=== PATIENT | male | born 1970 | race Caucasian/White ===

== ENCOUNTER → 2017-06-27 | Outpatient (CLI) | payer BC ==
--- NOTE | 2017-06-27 19:54 | US ---
EXAMINATION TYPE: US abdomen complete DATE OF EXAM: 06/27/2017 COMPARISON: NONE CLINICAL HISTORY: R10.11 Right upper quadrant pain. EXAM MEASUREMENTS: Liver Length: 19.7 cm Gallbladder Wall: 0.3 cm CBD: 0.4 cm Spleen: 11.5 cm Right Kidney: 13.3 x 6.2 x 5.2 cm Left Kidney: 13.4 x 6.2 x 4.5 cm Exam limitations due to body habitus Pancreas: Tail obscured by overlying bowel gas Liver: Increased attenuation Gallbladder: gallstone visualized Evidence for sonographic Rojas's sign: No CBD: wnl Spleen: wnl Right Kidney: No hydronephrosis or masses seen Left Kidney: No hydronephrosis or masses seen Upper IVC: wnl Abd Aorta: wnl Gallstone visualized non mobile IMPRESSION: Gallstones. No dilated ducts. No focal liver defect.
== END | disposition home or self-care (01) ==
LOC: RADUSMAIN 17:49
PROVIDERS: ATTEND Internal Medicine
DX: K80.80 Other cholelithiasis without obstruction (principal)
CPT/HCPCS: 76700

== ENCOUNTER 2020-05-04 04:24 | Inpatient (IN) | payer BC, OTHER ==
[2020-05-04] MEDS ORDERED: NITROGLYCERIN SL TABS 0.4 MG TAB SUBLINGUAL PRN (04:36)
[2020-05-04] MEDS ORDERED: MORPHINE SULFATE 4 MG/ML SYRINGE IVP STA (04:39)
[2020-05-04] MEDS ORDERED: MAG HYDROX/AL HYDROX/SIMETH 30 ML, HYOSCYAMINE ELIXIR 10 ML, LIDOCAINE VISCOUS 2% 10 ML PO STA ×3 (04:39)
--- NOTE | 2020-05-04 04:40 | ED ---
Chest Pain HPI - General Chief Complaint: Chest Pain Stated Complaint: CHEST PAINS Time Seen by Provider: 05/04/20 04:36 Source: patient Mode of arrival: ambulatory Limitations: no limitations - History of Present Illness Initial Comments: Laureano is a morbidly obese 49-year-old male who presents to the ER today as a transfer from [facility] for further evaluation by cardiology. Patient presents to the hospital with a complaint of sharp stabbing retrosternal pain radiating to his back. Patient was noted be hypertensive on arrival there. EKG was nonischemic. He was treated with morphine aspirin nitro, he received a full cardiac workup including a CTA of the chest with no acute findings however given the patient's age and risk factors and description of his pain and he felt he warranted admission to the hospital for further evaluation by cardiology. Patient has no established care with [employer] but his follows with the cardiology group at this hospital and therefore they requested transfer. Despite receiving 3 doses of narcotics patient reports persistent pain upon arrival. No nausea or vomiting. Pain not relieved by nitro previously. Hypertension has improved. Denies palpitations, lightheadedness or shortness of breath. - Related Data Home Medications Medication Instructions Recorded Confirmed No Known Home Medications 07/12/17 07/12/17 Allergies Allergy/AdvReac Type Severity Reaction Status Date / Time bee pollen Allergy Anaphylaxis Verified 05/04/20 04:37 Review of Systems ROS Statement: Those systems with pertinent positive or pertinent negative responses have been documented in the HPI. ROS Other: All systems not noted in ROS Statement are negative. EKG Findings - EKG Comments: EKG Findings:: EKG was obtained due to complaint of persistent chest pain, EKG was obtained at 4:30 AM, rate is 69, rhythm is sinus there is a normal axis, there are normal intervals, RI 158, QRS 100, QTC [address] elevations or depressions no evidence of acute ischemia or infarction or arrhythmia. Past Medical History Past Medical History: Hypertension Additional Past Medical History / Comment(s): back pain History of Any Multi-Drug Resistant Organisms: None Reported Past Surgical History: Cholecystectomy, Tonsillectomy Past Psychological History: No Psychological Hx Reported Smoking Status: Current every day smoker Past Alcohol Use History: Occasional Past Drug Use History: None Reported - Past Family History Mother Additional Family Medical History / Comment(s): pt. states his mother had heart issues, although he cannot remember which conditions General Exam - General Exam Comments Initial Comments: Physical Exam GENERAL: Patient is well-developed and well-nourished. Patient is nontoxic and well-hydrated Appears uncomfortable HENT: Normocephalic, Atraumatic. EYES: PERRL, EOMI PULMONARY: Unlabored respirations. No audible rales rhonchi or wheezing was noted. CARDIOVASCULAR: There is a regular rate and rhythm without any murmurs gallops or rubs. Mild bilateral lower extremity edema and chronic skin changes consistent with vascular insufficiency ABDOMEN: Obese Soft and nontender with normal bowel sounds. SKIN: Skin is clear with no lesions or rashes and otherwise unremarkable. : Deferred NEUROLOGIC: Patient is alert and oriented x3. Moving all extremities spontaneously MUSCULOSKELETAL: Normal extremities with adequate strength and full range of motion. No lower extremity swelling or edema. No calf tenderness. PSYCHIATRIC: Normal psychiatric evaluation. Limitations: no limitations Course Vital Signs 05/04/20 05/04/20 05/04/20 04:33 05:08 05:52 Temperature 97.9 F 97.8 F Pulse Rate 80 74 Pulse Rate [ 64 Pulse Oximetery ] Respiratory 20 19 16 Rate Blood Pressure 132/87 132/81 Blood Pressure 128/75 [Left Arm Sitting] O2 Sat by Pulse 96 96 94 L Oximetry Chest Pain MDM - MDM Patient care was discussed with the transferring physician prior to transfer Patient being transferred for further evaluation of possible ACS She was seen and evaluated upon arrival the emergency department, outpatient labs and imaging were reviewed Repeat troponin and coags were obtained Patient was treated with morphine as well as a GI cocktail for discomfort Patient will be admitted for further evaluation of retrosternal chest pain Disposition Clinical Impression: Chest pain, Morbid obesity with BMI of 50.0-59.9, adult, HTN (hypertension), Cigarette smoker Disposition: ADMITTED IP TO THIS HOSP Condition: Stable Referrals: Fozia Baires MD [Primary Care Provider] - 1-2 days
[2020-05-04 05:31] LABS: INR 0.9 (<1.2); Prothrombin Time 9.6 sec (9.0-12.0)
[2020-05-04] MEDS ORDERED: DOBUTamine DRIP for NUC MED 500 MG in DEXTROSE/WATER 1 250ML.BAG IV ONE (08:32)
--- NOTE | 2020-05-04 09:39 | P.CRDCN ---
History of Present Illness Consult date: 05/04/20 Consult reason: chest pain Chief complaint: chest pain History of present illness: this is a 49-year-old gentleman with no prior documented history of hypertension, no diabetes, no hyperlipidemia although he does not follow regularly with her primary care physician, he does smoke one pack of cigarettes per day, he does not drink alcohol, he is morbidly obese, history of sleep apnea. Patient presented to [facility] with symptoms of midsternal chest pain which the patient described as a sharp stabbing pain, mild associated shortness of breath, no nausea no diaphoresis. Started approximately 8 AM yes terday morning and has been off and on, but mostly constant since then. His EKG on presentation showed normal sinus rhythm with no acute changes. Blood pressure 128/70 with a heart rate in the 60s, respirations 1694% on room air. White blood cell count 12.2, hemoglobin 17.1, platelet count 240. Sodium 139, potassium 4.2, BUN 27, creatinine 0.7. Troponin less than 0.05 at [place], and troponins here have been negative 2. He did have a CTA of the chest performed at [facility] which was negative for pulmonary embolism, CT of the abdomen and pelvis was normal. Chest x-ray was also performed at [facility] which did not reveal any significant change. At the time of my examination this morning, patient continues to have a sharp stabbing midsternal chest discomfort. We will request an echocardiogram with Doppler study be performed, obtain a lipid profile, and recommended that the patient undergo a dobutamine echocardiographic study with Definity if needed. Past Medical History Past Medical History: Hypertension Additional Past Medical History / Comment(s): back pain History of Any Multi-Drug Resistant Organisms: None Reported Past Surgical History: Cholecystectomy, Tonsillectomy Past Anesthesia/Blood Transfusion Reactions: No Reported Reaction Past Psychological History: No Psychological Hx Reported Smoking Status: Current every day smoker Past Alcohol Use History: Occasional Past Drug Use History: None Reported - Past Family History Mother Additional Family Medical History / Comment(s): pt. states his mother had heart issues, although he cannot remember which conditions Medications and Allergies Home Medications Medication Instructions Recorded Confirmed Type No Known Home Medications 07/12/17 05/04/20 History Allergies Allergy/AdvReac Type Severity Reaction Status Date / Time bee pollen Allergy Anaphylaxis Verified 05/04/20 07:49 Physical Exam Vitals: Vital Signs Temp Pulse Pulse Resp BP BP Pulse Ox 05/04/20 07:54 98.1 F 73 124/83 95 05/04/20 05:52 97.8 F 64 16 128/75 94 L 05/04/20 05:08 74 19 132/81 96 05/04/20 04:33 97.9 F 80 20 132/87 96 Intake and Output 05/03/20 05/04/20 05/04/20 22:59 06:59 14:59 Other: Voiding Method Toilet # Voids 1 Weight 167.829 kg PHYSICAL EXAMINATION: GENERAL:49-year-old gentleman in no acute distress at the time of my examination HEENT: Head is atraumatic, normocephalic. Pupils equal, round. Sclera anicteric. Conjunctiva are clear. Mucous membranes of the mouth are moist. Neck is supple. There is no elevated jugular venous pressure.no carotid bruit is heard. HEART EXAMINATION: [Heart S1, S2 normal. No murmur or gallop heard.] CHEST EXAMINATION:[ Lungs are clear to auscultation and precussion. Chest wall tenderness is noted on palpation, not with deep breathing.] ABDOMEN: [ Soft,obese, nontender. Bowel sounds are heard. No organomegaly noted]. EXTREMITIES:[ 2+ peripheral pulses with no evidence of peripheral edema and no calf tenderness noted]. NEUROLOGIC [patient is awake, alert and oriented X3.] . Results Cardiac Enzymes 05/04/20 05/04/20 05/04/20 Range/Units 04:54 05:15 07:05 Troponin I <0.012 <0.012 <0.012 (0.000-0.034) ng/mL Coagulation 05/04/20 Range/Units 04:54 PT 9.6 (9.0-12.0) sec APTT 25.0 (22.0-30.0) sec Current Medications Generic Name Dose Route Start Last Admin Trade Name Freq PRN Reason Stop Dose Admin Aspirin 81 mg 05/05/20 09:00 Aspirin 81 Mg PO DAILY QI Dobutamine HCl/Dextrose 500 mg 250 mls @ 50.349 mls/hr 05/04/20 08:32 / IV Solution IV 05/04/20 13:29 .Q4H58M ONE Protocol 10 MCG/KG/MIN Nitroglycerin 0.4 mg 05/04/20 04:36 Nitroglycerin Sl Tabs 0.4 Mg Tab SUBLINGUAL Q5M PRN Chest Pain Intake and Output 05/03/20 05/04/20 05/04/20 22:59 06:59 14:59 Other: Voiding Method Toilet # Voids 1 Weight 167.829 kg EKG Interpretations (text) EKG shows a normal sinus rhythm with no acute changes. Assessment and Plan Plan: assessment and plan #1 atypical chest pain, troponins negative 3, EKG shows normal sinus rhythm with no acute changes. #2nicotine dependence, patient's smokes one pack of cigarettes per day #3 morbid obesity #4 sleep apnea #5 no prior documented history of hypertension, no diabetes, no hyperlipidemia, patient does not follow regularly with the primary care doctor Plan We will obtain an echocardiogram with Doppler study, obtain lipid profile, patient will undergo dobutamine echocardiographic study with Definity as needed, today. Further recommendations will be based on those findings and the patient's overall clinical course. DNP note has been reviewed, I agree with a documented findings and plan of care. Patient was seen and examined.
--- NOTE | 2020-05-04 10:10 | ECHOF ---
Referral Reason:chest pain MEASUREMENTS -------- HEIGHT: 180.3 cm WEIGHT: 167.8 kg BP: IVSd: 1.4 cm (0.6 - 1.1) LVIDd: 3.5 cm (3.9 - 5.3) LVPWd: 1.5 cm (0.6 - 1.1) IVSs: 2.1 cm LVIDs: 2.0 cm LVPWs: 1.8 cm Ao Diam: 3.5 cm (2.0 - 3.7) LA Diam: 2.7 cm (2.7 - 3.8) MV EXCURSION: 16.074 mm (> 18.000) MV EF SLOPE: 72 mm/s (70 - 150) EPSS: 0.3 cm MV E Julio: 0.48 m/s MV DecT: 293 ms MV A Julio: 0.46 m/s MV E/A Ratio: 1.06 RAP: 5.00 mmHg RVSP: 9.64 mmHg FINDINGS -------- This was a technically difficult study with suboptimal views. The left ventricular size is normal. There is moderate concentric left ventricular hypertrophy. O verall left ventricular systolic function is normal with, an EF between 55 - 60 %. The RV was not well visualized. The left atrium was not well visualized. The right atrium was not well visualized. Lumason used The aortic valve was not well visualized. The mitral valve was not well visualized. The tricuspid valve was not well visualized. The pulmonic valve was not well visualized. The aortic root size is normal. IVC Not well visulized. There is no pericardial effusion. CONCLUSIONS -------- 1. There is moderate concentric left ventricular hypertrophy. 2. Overall left ventricular systolic function is normal with, an EF between 55 - 60 %. 3. There is no pericardial effusion. [employer]: Bindu Agarwal RDCS
--- NOTE | 2020-05-04 10:16 | P.EN ---
I came to see the patient and he was at stress test. We will follow up
--- NOTE | 2020-05-04 12:22 | ECHOS ---
STRESS ECHOCARDIOGRAM INDICATIONS: Chest pain. MEDICATIONS: None BASELINE HEART RATE: 69 BASELINE BLOOD PRESSURE: 135/72 MAXIMUM HEART RATE: 113 MAXIMUM BLOOD PRESSURE: 174/68 85% MPHR: 146 100% MPHR: 172 MAXIMUM STAGE REACHED: 3 TOTAL EXERCISE TIME: 8:15 CLINICAL INFORMATION: STRESS DATA: Heart rate 69, pressure is 135/72 mmHg. Baseline EKG showed sinus mechanism. Dobutamine infusion at a dose of 10 mcg/kg per minute was initiated and increased to 30 mcg/kg per minute per protocol. Max heart rate was 113, which is only about 65% of maximum predicted heart rate. Maximum blood pressure was 174/68 mmHg. Clinically, the patient did not have any symptoms of chest pain or chest discomfort. The EKG did not show any significant changes, but the patient developed wide-complex rhythm in response to dobutamine, seems to be consistent with left bundle branch morphology. ECHOCARDIOGRAM IMAGES: On echocardiogram images from parasternal long axis view, parasternal short axis view, apical 4 chamber and apical 2 chambers were obtained as the baseline images, at the low dose dobutamine infusion, at the peak of the heart rate as well as on recovery. The echocardiogram images did not show any significant wall motion abnormalities concerning for ischemia. CONCLUSION: 1. This is a nondiagnostic dobutamine stress echocardiogram due to the patient not achieving 85% and only achieving 65% of maximum predicted heart rate. 2. Left bundle branch block in response to dobutamine. 3. Normal echocardiogram in response to dobutamine to the level of heart rate was achieved. MMODL / IJN: [id number] /
--- NOTE | 2020-05-04 13:21 | P.HPIM ---
History of Present Illness This is a pleasant 49 years old male with past medical history of hypertension, chronic back pain. Patient does not follow with PCP. He smokes about 1 pack per day. patient was transferred from [facility]. He presents because of chest pain He did have a CTA of the chest performed at [facility] which was negative for pulmonary embolism as per transfer report, CT of the abdomen and pelvis was normal. Chest x-ray was also performed at [facility] which did not reveal any significant change. CT angiography of the abdomen and pelvis done at [facility]: No aortic dissection or aneurysm, no other vascular abnormality per report of radiologist Vitals are stable. Labs include been INR 0.9, severe troponin less than 0.012. WBC was slightly elevated 12.2 K, hemoglobin 17.1, platelets 240 daily. INR 1.0. Sodium 139, potassium 4.2, creatinine 0.7. Liver enzymes not elevated, troponin is negative at less than 0.05. Past Medical History Past Medical History: Hypertension Additional Past Medical History / Comment(s): back pain History of Any Multi-Drug Resistant Organisms: None Reported Past Surgical History: Cholecystectomy, Tonsillectomy Past Anesthesia/Blood Transfusion Reactions: No Reported Reaction Past Psychological History: No Psychological Hx Reported Smoking Status: Current every day smoker Past Alcohol Use History: Occasional Past Drug Use History: None Reported - Past Family History Mother Additional Family Medical History / Comment(s): pt. states his mother had heart issues, although he cannot remember which conditions Medications and Allergies Home Medications Medication Instructions Recorded Confirmed Type No Known Home Medications 07/12/17 05/04/20 History Allergies Allergy/AdvReac Type Severity Reaction Status Date / Time bee pollen Allergy Anaphylaxis Verified 05/04/20 07:49 Physical Exam Vitals: Vital Signs Temp Pulse Pulse Resp BP BP BP 05/04/20 12:52 117/66 05/04/20 09:00 73 16 05/04/20 07:54 98.1 F 73 124/83 05/04/20 05:52 97.8 F 64 16 128/75 05/04/20 05:08 74 19 132/81 05/04/20 04:33 97.9 F 80 20 132/87 Pulse Ox 05/04/20 12:52 05/04/20 09:00 05/04/20 07:54 95 10/06/20 05:52 94 L 05/04/20 05:08 96 05/04/20 04:33 96 Intake and Output 05/03/20 05/04/20 05/04/20 22:59 06:59 14:59 Other: Voiding Method Toilet Toilet # Voids 1 Weight 167.829 kg 167.83 kg Thrombosis Risk Factor Assmnt - Choose All That Apply Each Factor Represents 1 point: Age 41-60 years, Obesity (BMI >25) Thrombosis Risk Factor Assessment Total Risk Factor Score: 2 Thrombosis Risk Factor Assessment Level: Low Risk Assessment and Plan Assessment: -Chest pain, rule out cardiac reasons. Patient is planned to go for cardiac cath tomorrow. Cartilage team on the case. Continue with aspirin -Nicotine dependence: Patient is counseled. Continue with nicotine patch as patient agrees to quit -Hypertension -Chronic back pain -DVT prophylaxis: Subcutaneous heparin -GI Prophylaxis: Pepcid Prognosis is guarded
[2020-05-04] MEDS: NICOTINE 14MG/24HR PATCH TRANSDERM SCH (13:37)
[2020-05-04] MEDS: ACETAMINOPHEN TAB 325 MG TAB PO PRN (13:37)
[2020-05-04] MEDS ORDERED: FAMOTIDINE 20 MG/2 ML VIAL IV ONE (14:00)
[2020-05-04] MEDS: FAMOTIDINE 20 MG/2 ML VIAL IV SCH (20:21)
[2020-05-04] MEDS: HEPARIN SODIUM,PORCINE 5,000 UNIT/ML 1 ML VIAL SQ SCH (20:22)
[2020-05-05 01:41] LABS: Cholesterol 183 mg/dL (<200); HDL Cholesterol 39 mg/dL (40-60); LDL Cholesterol,Calculated 108 mg/dL (0-99); Triglycerides 181 mg/dL (<150)
[2020-05-05] MEDS ORDERED: NITROGLYCERIN SL TABS 0.4 MG TAB SUBLINGUAL PRN (07:03)
[2020-05-05] MEDS ORDERED: ATORVASTATIN 80 MG TAB PO STA (07:03)
[2020-05-05] MEDS ORDERED: SODIUM CHLORIDE 0.9% 1,000 ML in EMPTY BAG 1 BAG IV ONE (07:03)
[2020-05-05] MEDS ORDERED: ASPIRIN 325 MG TAB PO STA (07:03)
[2020-05-05] MEDS ORDERED: ALPRAZolam 0.25 MG TAB PO PRN (07:03)
[2020-05-05 07:43] LABS: Glucose,Whole Blood 103 mg/dL (75-99)
[2020-05-05] MEDS: HEPARIN SODIUM,PORCINE 5,000 UNIT/ML 1 ML VIAL SQ SCH ×2 (08:08→20:03)
[2020-05-05] MEDS: NICOTINE 14MG/24HR PATCH TRANSDERM SCH (08:08)
[2020-05-05] MEDS: FAMOTIDINE 20 MG/2 ML VIAL IV SCH (08:08)
[2020-05-05] MEDS ORDERED: ASPIRIN 325 MG TAB PO SCH (09:00)
[2020-05-05] MEDS: ACETAMINOPHEN TAB 325 MG TAB PO PRN (13:58)
[2020-05-05] MEDS: ALPRAZolam 0.5 MG TAB PO PRN (13:59)
[2020-05-05] MEDS: ASPIRIN 81 MG PO SCH (14:01)
--- NOTE | 2020-05-05 17:02 | P.PN ---
Subjective patient given a chest pain, which appeared to be gases patient reflux disease patient is on Protonix patient also has positive stress test will undergo cardiac catheterization tomorrow. Constitutional: Denied any fatigue denied any fever. Cardio vascular: denied any chest pain, palpitations Gastrointestinal patient still has epigastric abdominal burning sensation. Pulmonary: Denied any shortness of breath cough Neurologic denied any new focal deficits All inpatient medications were reviewed and appropriate changes in these medications as dictated in the interval history and assessment and plan. Objective - Vital Signs Vital signs: Vital Signs Temp 97.7 F 05/05/20 15:00 Pulse 66 05/05/20 15:00 Resp 16 05/05/20 15:00 BP 110/71 05/05/20 15:00 Pulse Ox 95 05/05/20 15:00 Intake & Output 05/04/20 05/05/20 05/05/20 18:59 06:59 18:59 Intake Total 406 429 3626 Balance 366 397 2302 Weight 167.83 kg Intake: Intake, IV Titration 1002 Amount Sodium Chloride 0.9% 1, 1002 000 ml In Empty Bag 1 bag @ 1 ML/KG/HR 167.83 mls/ hr IV .Q5H58M ONE Rx#: [id number] Oral 640 240 480 Other: Voiding Method Toilet Toilet Toilet # Voids 2 2 - Exam PHYSICAL EXAMINATION: GENERAL: The patient is alert and oriented x3, not in any acute distress. obese HEENT: Pupils are round and equally reacting to light. EOMI. No scleral icterus. No conjunctival pallor. Normocephalic, atraumatic. No pharyngeal erythema. No thyromegaly. CARDIOVASCULAR: S1 and S2 present. No murmurs, rubs, or gallops. PULMONARY: Chest is clear to auscultation, no wheezing or crackles. ABDOMEN: Soft, nontender, nondistended, normoactive bowel sounds. No palpable organomegaly. MUSCULOSKELETAL: No joint swelling or deformity. EXTREMITIES: No cyanosis, clubbing, or pedal edema. NEUROLOGICAL: Gross neurological examination did not reveal any focal deficits. SKIN: No rashes. - Labs Labs: Abnormal Lab Results - Last 24 Hours (Table) 05/04/20 05/05/20 Range/Units 04:54 07:38 POC Glucose (mg/dL) 103 H (75-99) mg/dL Triglycerides 181 H (<150) mg/dL LDL Cholesterol, Calc 108 H (0-99) mg/dL HDL Cholesterol 39 L (40-60) mg/dL Assessment and Plan Plan: -Chest pain,with positive stress test will undergo cardiac ablation tomorrow patient did symptomatology is clinically consistent with gastroesophageal reflux disease because of which will continue with Protonix for now -Nicotine dependence: Patient is counseled. Continue with nicotine patch as patient agrees to quit -Hypertension -Chronic back pain -DVT prophylaxis: Subcutaneous heparin Prognosis is guarded
[2020-05-05] MEDS: PANTOPRAZOLE 40 MG/10 ML VIAL IVP SCH (20:02)
[2020-05-06] MEDS: ALPRAZolam 0.5 MG TAB PO PRN (00:29)
[2020-05-06] MEDS: ASPIRIN 81 MG PO SCH (06:35)
[2020-05-06 06:39] LABS: Glucose,Whole Blood 157 mg/dL (75-99)
[2020-05-06] MEDS ORDERED: fentaNYL (PF) 50 MCG/ML 2 ML AMP IV ONE (07:51)
[2020-05-06] MEDS ORDERED: MIDAZOLAM 2 MG/2 ML VIAL IV ONE ×2 (07:51→08:04)
[2020-05-06] MEDS ORDERED: IV FLUID CONTINUATION 800 ML IV ONE (07:51)
[2020-05-06] MEDS ORDERED: LIDOCAINE 1% INJ 10MG/ML (20 ML MDV) SQ ONE (07:54)
[2020-05-06] MEDS ORDERED: VERAPAMIL SYRINGE (5 MG/10 ML) INTRAARTER ONE (07:55)
[2020-05-06] MEDS ORDERED: IOPAMIDOL-370 125ML BTL INJ ONE (08:06)
[2020-05-06] MEDS ORDERED: RX INFO: IV CONTRAST WAS GIVEN 1 EACH MISC MISCELLANE PRN (08:12)
[2020-05-06] MEDS ORDERED: SODIUM CHLORIDE 0.9% 1,000 ML IV SCH (08:15)
[2020-05-06] MEDS: NICOTINE 14MG/24HR PATCH TRANSDERM SCH (09:35)
[2020-05-06] MEDS: HEPARIN SODIUM,PORCINE 5,000 UNIT/ML 1 ML VIAL SQ SCH (09:35)
[2020-05-06] MEDS: PANTOPRAZOLE 40 MG/10 ML VIAL IVP SCH (09:35)
--- NOTE | 2020-05-06 09:39 | CC ---
CARDIAC CATHETERIZATION REPORT DATE OF SERVICE: 05/06/2020 PERFORMING PHYSICIAN: John Melchor MD PROCEDURE PERFORMED: 1. Selective right and left coronary angiogram. 2. Left heart catheterization. INDICATION: This is a very pleasant 49-year-old gentleman with morbid obesity, who presented to the hospital with chest discomfort. Attempting doing stress test was seen an unsuccessful and because of that and because of the chest discomfort, a heart catheterization was advised. APPROACH: Right radial artery. COMPLICATION: None. LEVEL OF SEDATION: Moderate with sedation length of 15 minutes. PROCEDURE DESCRIPTION: After obtaining an informed consent, the patient was brought to the cardiac labor relations consultant. The right radial artery was cannulated using micropuncture technique, the micropuncture wire passed easily, then I placed a 6-Portuguese sheath 11 cm at the right radial artery. I did give the patient 2 mg of verapamil IA and 10,000 units of heparin IV. Selective right and left coronary angiogram performed with JR4 and JL3.5 catheters. Left heart catheterization was performed using 6-Portuguese pigtail catheter. The procedure was completed without any complication. SELECTIVE CORONARY ANGIOGRAM: 1. The right coronary artery is a large caliber vessel it is a dominant vessel. The RCA has mild disease only. Distally bifurcates into PDA and PLV branches and both appeared to be angiographically normal. 2. The left main is angiographically normal. It bifurcates into left circumflex and left anterior descending artery. 3. The left circumflex is a large caliber vessel, it is a nondominant vessel. The left circumflex system appeared to have mild disease only. It gives rise into the first obtuse marginal branch which is a medium caliber vessel, seems to be angiographically normal and second obtuse marginal branch which is a large caliber vessel and seems to be angiographically normal. The circumflex after that continues as a small caliber vessel in the AV groove. 4. The LAD: The proximal LAD appeared to be angiographically normal and gives rise into a large diagonal branch which seems to be normal. The mid LAD has eccentric lesion appeared to be in the range of 30% only and the LAD distally appeared to be normal. The LAD in the midportion gives rise into a second diagonal branch which seems to be angiographically normal. 5. HEMODYNAMICS: The LVEDP was 20 mmHg without significant gradient across aortic valve. CONCLUSION: 1. Mild nonobstructive disease involving the mid left anterior descending artery, appeared to be in the range of 30% only with an eccentric lesion. 2. Elevated LVEDP. POSTPROCEDURE MANAGEMENT: 1. Aspirin and high intensity statin. 2. Risk factor modifications. 3. Aggressive cholesterol control. 4. Weight loss. 5. Follow up with the patient. DON / MARLENI: [id number] /
--- NOTE | 2020-05-06 09:42 | LTR ---
DATE OF SERVICE: 05/06/2020 RE: Laureano Angel Dear Dr. Baires: Mr. Laureano Angel was admitted to [facility] with chest discomfort. He underwent a heart catheterization and that revealed mild nonobstructive coronary artery disease. I want to thank you for allowing me participate in his case and please do not hesitate to call if you have any question or concern. Sincerely, MD DON Branch / MARLENI: [id number] /
[2020-05-06 09:55] VITALS: TEMP 97.5
[2020-05-06 09:57] VITALS: RESP 18
[2020-05-06 13:07] VITALS: BP 129/78; PULSE 68
--- NOTE | 2020-05-06 15:17 | P.DS ---
Providers Date of admission: 05/06/20 08:18 Attending physician: Nhi Porter Consults: 05/04/20 04:36 Consult Physician Urgent Consulting Provider: [facility] Consult Reason/Comments: chest pain, HTN, HLD, obesity Do you want consulting provider notified?: Yes, Notify in am Primary care physician: Fozia Baires [facility] Course: patient given a chest pain, which appeared to be gases patient reflux disease patient is on Protonix patient also has positive stress test will undergo cardiac catheterization tomorrow. 05/06/2020 Patient had a cardiac catheterization which showed some it was cardiovascular disease but the not significant enough that he will need stenting. Patient does have mild hypercholesterolemia patient was discharged on aspirin statin. Patient still has some epigastric burning sensation patient may have peptic ulcer disease or gastritis patient will be given proton pump inhibitor for 14 days PHYSICAL EXAMINATION: GENERAL: The patient is alert and oriented x3, not in any acute distress. Obese HEENT: Pupils are round and equally reacting to light. EOMI. No scleral icterus. No conjunctival pallor. Normocephalic, atraumatic. No pharyngeal erythema. No thyromegaly. CARDIOVASCULAR: S1 and S2 present. No murmurs, rubs, or gallops. PULMONARY: Chest is clear to auscultation, no wheezing or crackles. ABDOMEN: Soft, nontender, nondistended, normoactive bowel sounds. No palpable organomegaly. MUSCULOSKELETAL: No joint swelling or deformity. EXTREMITIES: No cyanosis, clubbing, or pedal edema. NEUROLOGICAL: Gross neurological examination did not reveal any focal deficits. SKIN: No rashes. Assessment and Plan Plan: -Chest pain,with positive stress test patient underwent cardia catheterization and cardiac cath findings as mentioned above consistent with gastroesophageal reflux disease because of which will continue with Protonix for now -Nicotine dependence: Patient is counseled. Continue with nicotine patch as patient agrees to quit -Hypertension -Chronic back pain -DVT prophylaxis: Subcutaneous heparin Prognosis is guarded Patient Condition at Discharge: Stable Plan - Discharge Summary Discharge Rx Participant: No New Discharge Prescriptions: New Aspirin 81 mg PO DAILY #30 chew Pantoprazole [Protonix] 40 mg PO DAILY #14 tablet. Atorvastatin [Lipitor] 20 mg PO HS #30 tablet Discharge Medication List Aspirin 81 mg PO DAILY #30 chew 05/06/20 [Rx] Atorvastatin [Lipitor] 20 mg PO HS #30 tablet 05/06/20 [Rx] Pantoprazole [Protonix] 40 mg PO DAILY #14 tablet. 05/06/20 [Rx] Follow up Appointment(s)/Referral(s): John Melchor MD [STAFF PHYSICIAN] - 1 Week Fozia Baires MD [Primary Care Provider] - 3 Days Discharge Disposition: HOME SELF-CARE
[2020-05-06] MEDS ORDERED: PANTOPRAZOLE 40 MG TABLET PO SCH (17:30)
== END 2020-05-06 16:38 | disposition home or self-care (01) | DRG 392 ==
LOC: EC 04:24 → 3NCARDOBS 04:36 → OBSVTOIN 05-06 08:18
PROVIDERS: ADMIT Hospitalist; ATTEND Hospitalist
PROC: B2111ZZ Fluoroscopy of Multiple Coronary Arteries using Low Osmolar Contrast (ICD-10-PCS; 2020-05-06)
PROC: 4A023N7 Measurement of Cardiac Sampling and Pressure, Left Heart, Percutaneous Approach (ICD-10-PCS; principal; 2020-05-06 07:30)
DX: K21.9 Gastro-esophageal reflux disease without esophagitis (principal); Z68.43 Body mass index [BMI] 50.0-59.9, adult; E66.01 Morbid (severe) obesity due to excess calories; I25.10 Atherosclerotic heart disease of native coronary artery without angina pectoris; I10 Essential (primary) hypertension; G89.29 Other chronic pain; M54.9 Dorsalgia, unspecified; F17.210 Nicotine dependence, cigarettes, uncomplicated; G47.30 Sleep apnea, unspecified; K27.9 Peptic ulcer, site unspecified, unspecified as acute or chronic, without hemorrhage or perforation; K29.70 Gastritis, unspecified, without bleeding; E78.00 Pure hypercholesterolemia, unspecified; Z71.6 Tobacco abuse counseling; Z91.030 Bee allergy status; Z90.49 Acquired absence of other specified parts of digestive tract; Z98.890 Other specified postprocedural states; Z82.49 Family history of ischemic heart disease and other diseases of the circulatory system
CPT/HCPCS: 80061; 84484; 85379; 85610; 85730; 93005; 93306; 93351; 93458; 96374; 99285

== ENCOUNTER → 2023-05-05 | Outpatient (CLI) | payer OTHER ==
[2023-05-05 14:34] LABS: Basophils # (A) 0.07 X 10*3/uL (0.00-0.10); Eosinophils # (A) 0.26 X 10*3/uL (0.04-0.35); Eosinophils % (A) 3.7 %; HCT 52.1 % (39.6-50.0); HGB 17.5 d/dL (13.0-17.0); Lymphocytes % (A) 31.4 %; MCH 30.3 pg (27.0-32.0); MCHC 33.6 d/dL (32.0-37.0); MCV 90.3 FL (80.0-97.0); Mean Platelet Volume 9.1 FL (9.5-12.2); Monocytes # (A) 0.57 X 10*3/uL (0.20-1.00); Monocytes % (A) 8.1 %; NRBC Per 100 WBC 0 X 10*3/uL (0.00-0.01); Neutrophils # (A) 3.88 X 10*3/uL (1.80-7.70); Neutrophils % (A) 55.5 %; Platelet Count 190 X 10*3/uL (140-440); RBC 5.77 X 10*6/uL (4.40-5.60); RDW 12.5 % (11.5-14.5)
[2023-05-05 14:47] LABS: BUN/Creat Ratio 28.43 Ratio (12.00-20.00); Blood Urea Nitrogen 19.9 mg/dL (9.0-27.0); Calcium 8.9 mg/dL (8.7-10.3); Carbon Dioxide 23.8 mmol/L (21.6-31.8); Chloride 104 mmol/L (96-109); Glucose 130 mg/dL (70-110); Potassium 4.8 mmol/L (3.5-5.5); Sodium 138 mmol/L (135-145)
== END | disposition home or self-care (01) ==
LOC: LABPAT 09:32
PROVIDERS: ATTEND Urology
DX: Z30.02 Counseling and instruction in natural family planning to avoid pregnancy (principal)
CPT/HCPCS: 80048; 85025

== ENCOUNTER 2023-05-08 10:29 | Day surgery (SDC) | payer OTHER ==
--- NOTE | 2023-05-08 09:59 | P.HPIHPCON ---
History of Present Illness H&P Date: 05/08/23 Chief Complaint: family planning This is a 52-year-old male that was interested in proceeding with a Vasectomy. I was unable to palpate the bilateral vas secondary to patient's morbid obesity. Of note patient's BMI is 53. Vasectomy under sedation was discussed with him. Aware the risk which includes but not limited to bleeding, infection, injury to the testicle and chronic pain. Discussed also he will not get immediate results we'll have to have 2 negative samples prior to confirm sterility. Discussed also even if sterility is confirmed there is potential for . Consent for Procedure: I have explained the operation/procedure to the patient, including the risks, benefits, side effects, alternative therapies (including not receiving the proposed treatment or service), the likelihood of the patient achieving his/her goals, and potential recuperation problems for the procedure/sedation/analgesia, as well as any blood products, if indicated. I also explained to the patient the risks, benefits and side effects of the alternatives, as well as the risks related to not receiving the proposed procedure, care, treatment, or services. Past Medical History Past Medical History: Hyperlipidemia, Hypertension Additional Past Medical History / Comment(s): back pain History of Any Multi-Drug Resistant Organisms: None Reported Past Surgical History: Back Surgery, Cholecystectomy, Tonsillectomy Past Anesthesia/Blood Transfusion Reactions: No Reported Reaction Smoking Status: Current every day smoker - Past Family History Mother Additional Family Medical History / Comment(s): pt. states his mother had heart issues, although he cannot remember which conditions Medications and Allergies Home Medications Medication Instructions Recorded Confirmed Type Atorvastatin [Lipitor] 20 mg PO HS #30 tablet 05/06/20 05/02/23 Rx Allergies Allergy/AdvReac Type Severity Reaction Status Date / Time bee pollen Allergy Anaphylaxis Verified 05/02/23 09:35 Assessment and Plan Assessment: OR for bilateral vasectomy
[~2023-05-08 10:29] MED LIST: DEXAMETHASONE SOD PHOSPHATE 4 MG/ML 1 ML VIAL IV ONE; HYDROmorphone 0.5 MG/0.5 ML SYRINGE IVP PRN; LACTATED RINGERS 1,000 ML IV SCH; LIDOCAINE 1% (10MG/ML) FOR IV START INTRADERMA PRN; MIDAZOLAM 2 MG/2 ML VIAL IV PRN; ONDANSETRON 4 MG/2 ML VIAL IVP ONE; ceFAZolin 3 GM in SODIUM CHLORIDE 0.9% 100 ML IVPB PRN
[2023-05-08] MEDS ORDERED: SUCCINYLCHOLINE CHLORIDE 200 MG/10 ML VIAL IV ONE (13:17)
[2023-05-08] MEDS ORDERED: KETAMINE HCL IN 0.9 % NACL 50 MG/5 ML SYRINGE ONE (13:17)
[2023-05-08] MEDS ORDERED: fentaNYL (PF) 50 MCG/ML 2 ML AMP ONE ×2 (13:17→15:41)
[2023-05-08] MEDS ORDERED: DEXAMETHASONE SOD PHOSPHATE 10 MG/ML 1 ML VIAL ONE (13:17)
[2023-05-08] MEDS ORDERED: LIDOCAINE 1% INJ 10MG/ML (20 ML MDV) ONE (13:17)
[2023-05-08] MEDS ORDERED: PROPOFOL 10 MG/ML 20 ML VIAL IV ONE (13:17)
[2023-05-08] MEDS ORDERED: MIDAZOLAM 2 MG/2 ML VIAL ONE (13:17)
[2023-05-08] MEDS ORDERED: LIDOCAINE 2% INJ 20 MG/ML SQ ONE ×2 (13:34)
[2023-05-08] MEDS ORDERED: BACITRACIN ZINC 500 UNIT/GM OINT 28.4 GM TUBE TOPICAL ONE (13:34)
[2023-05-08] MEDS ORDERED: LACTATED RINGERS 1,000 ML IV ONE ×2 (14:47)
[2023-05-08 15:08] VITALS: TEMP 97.9
--- NOTE | 2023-05-08 15:08 | P.PN ---
Progress Note - Text Progress Note Date: 05/08/23 This 52 years old male who was scheduled to have bilateral vasectomy under monitored anesthesia care, he morbidly obese, after the case started under monitored anesthesia care during the procedure but patient was moving on the procedure table, and the surgeon requested to convert the case to her general anesthesia, and because of patient morbidly obese we've used to do general anesthesia under an endotracheal intubation, after preoxygenation with 100% oxygen, IV induction with propofol 300 mg and succinylcholine 140 mg, attempted to intubate using Glidscope, unable to visualize the vocal cords secondary to copious amount of soft tissue, we repositioned the patient, and attempted again to intubate using glidscope, x3 attempte, unable to visualize the vocal cord, and there was soft tissue edema in the oropharynx, we were able to mask ventilate the patient throughout the process of intubation, discussed with the surgeon the need to cancelle Case, patient noted to be scheduled in the future and we have to do fiberoptic intubation.
[2023-05-08] MEDS ORDERED: ACETAMINOPHEN TAB 500 MG TAB ONE (15:42)
[2023-05-08] MEDS ORDERED: fentaNYL (PF) 50 MCG/ML 2 ML AMP IVP ONE ×2 (15:50)
[2023-05-08] MEDS ORDERED: ACETAMINOPHEN TAB 500 MG TAB PO ONE ×2 (15:50)
[2023-05-08 15:58] VITALS: RESP 20
[2023-05-08 16:45] VITALS: BP 123/72; PULSE 70
--- NOTE | 2023-05-08 16:57 | P.OP ---
Date of Procedure: 05/08/23 Preoperative Diagnosis: Family planning Postoperative Diagnosis: Same Procedure(s) Performed: Attempted vasectomy Implants: None Anesthesia: MAC Surgeon: Ganga Rowley Estimated Blood Loss (ml): 10 Pathology: none sent Condition: stable Disposition: PACU Indications for Procedure: This is a 52-year-old male that was interested in proceeding with a Vasectomy. I was unable to palpate the bilateral vas secondary to patient's morbid obesity. Of note patient's BMI is 53. Vasectomy under sedation was discussed with him. Aware the risk which includes but not limited to bleeding, infection, injury to the testicle and chronic pain. Discussed also he will not get immediate results we'll have to have 2 negative samples prior to confirm sterility. Discussed also even if sterility is confirmed there is potential for . Operative Findings: Attempted vasectomy under sedation but patient continued to have persistent cough palpating and grasped in the vascular difficult, next attempt was perform this under general anesthesia, unable to intubate please see anesthesia note for detail. Thus case was terminated Description of Procedure: Patient brought to the operating room, sedation was induced. Next the vas was palpated on the right hemiscrotum. 2% lidocaine was infiltrated into the scrotal skin. next using the hemostat I was able to make a puncture incision through the scrotum. I was able to grasp the vas using the a ring forcep and this was brought through a scrotal incision. The vas was isolated, and 2-0 silk was placed on each side on of the right vas, at this time I cut the vas, this time patient had persistent cough and the vas retracted back to the scrotal cavity, at this time the decision was made to try to do this under general anesthesia, additionally patient also had an erection which further retracted the scrotal skin. Multiple attempts were made to intubate the patient but was unsuccessful, please see the anesthesiologist not for details, at this time the case was aborted, will reattempt left-sided vasectomy and we'll try to redo the right-sided vasectomy given the complete control the vas was not performed secondary to retraction.
== END 2023-05-08 16:38 | disposition home or self-care (01) ==
LOC: OR 10:29
PROVIDERS: ATTEND Urology
DX: Z30.2 Encounter for sterilization (principal); I10 Essential (primary) hypertension; E78.5 Hyperlipidemia, unspecified; F17.200 Nicotine dependence, unspecified, uncomplicated; E66.01 Morbid (severe) obesity due to excess calories; Z68.43 Body mass index [BMI] 50.0-59.9, adult; Z90.49 Acquired absence of other specified parts of digestive tract; Z79.899 Other long term (current) drug therapy; Z90.89 Acquired absence of other organs
CPT/HCPCS: 55250; J2001 ×2; J2250; J0330; J1100 ×2; J2405; J3010; J2704